=== PATIENT | male | born 1970 | race Caucasian/White ===

== ENCOUNTER 2018-09-30 04:57 | Observation (INO) | payer BC ==
--- NOTE | 2018-09-30 05:13 | EDPHY ---
H & P Stated Complaint: Swelling around left eye Time Seen by Provider: 09/30/18 05:13 HPI/ROS: HPI CHIEF COMPLAINT: Facial swelling, redness, pain. HISTORY OF PRESENT ILLNESS: Very pleasant 47-year-old male, visiting from out of town, from [facility] on Saturday he noticed some swelling, itching and redness to his face bilaterally above his eyebrows. This is progressively gotten worse. Now has left facial swelling, increasing pain. He also noticed some yellow crusting with yellow drainage. Denies any eye pain. Denies eye pain with movement. Denies fever. He went to an urgent care and was started on Keflex orally. However he was told that it could also possibly be an allergic reaction. Woke up this morning with increasing swelling left-sided face and decided come the emergency room. Patient denies any trauma. Past Medical History: Patient does report that he has a history of cellulitis. But never this bad on his face. Past Surgical History: Chest pacemaker. Social History: Denies drugs alcohol tobacco. Retired. From [employer]. Visiting family. Family History: Noncontributory ROS REVIEW OF SYSTEMS: 10 Systems were reviewed and negative with the exception of the elements mentioned in the history of present illness. Exam Constitutional vital signs stable, nontoxic appearing triage nursing summary reviewed, vital signs reviewed, awake/alert. Eyes normal conjunctivae and sclera, EOMI, PERRLA. HENT face exam: Facial swelling bilaterally however worse around the left orbit, soft, minimal tenderness, mild redness, mild warmth, yellow crusting at the medial corner of the left Person, and yellow crusting above the left eyebrow consistent with most likely impetigo, no room mucosal lesions, moist mucus membranes, no epistaxis, neck supple/ no meningismus, no raccoon eyes. Respiratory clear to auscultation bilaterally, normal breath sounds, no respiratory distress, no wheezing. Cardiovascular rate normal, regular rhythm, no murmur, no edema, distal pulses normal. Gastrointestinal soft, non-tender, no rebound, no guarding, normal bowel sounds, no distension, no pulsatile mass. Genitourinary no CVA tenderness. Musculoskeletal no midline vertebral tenderness, full range of motion, no calf swelling, no tenderness of extremities, no meningismus, good pulses, neurovascularly intact. Skin red blotches left lateral ribs, and right hip please see above for facial cellulitis. Neurologic awake, alert and oriented x 3, AAOx3, moves all 4 extremities equally, motor intact, sensory intact, CN II-XII intact, normal cerebellar, normal vision, normal speech. Psychiatric normal mood/affect. Heme/Lymph/Immune no lymphadenopathy. Differential Diagnosis: Includes but is not limited to facial cellulitis, strep infection, MRSA infection, bacteremia, sepsis, deep space abscess, periorbital cellulitis, orbital cellulitis Medical Decision Making: Plan for this patient IV establishment blood cultures , inflammatory markers, lactic acid, IV Ancef, CT maxillofacial with IV contrast , and admission. Re-evaluation: Spoke with the hospitalist service agree for admission Dr. Baxter. CT maxillofacial with contrast called to me by Dr. Anderson. Shows preseptal cellulitis. Left eye. No orbital cellulitis. No abscess Source: Patient - Personal History Current Tetanus/Diphtheria Vaccine: Yes Current Tetanus Diphtheria and Acellular Pertussis (TDAP): Yes - Medical/Surgical History Hx Asthma: No Hx Chronic Respiratory Disease: No Hx Diabetes: No Hx Cardiac Disease: No Hx Renal Disease: No Hx Cirrhosis: No Hx Alcoholism: No Hx HIV/AIDS: No Hx Splenectomy or Spleen Trauma: No Other PMH: pacemaker - Social History Smoking Status: Never smoked Constitutional: Initial Vital Signs Temperature (C) 36.5 C 09/30/18 05:03 Heart Rate 49 L 09/30/18 05:03 Respiratory Rate 16 09/30/18 05:03 Blood Pressure 135/87 H 09/30/18 05:03 O2 Sat (%) 98 09/30/18 05:03 O2 Delivery Mode Room Air Allergies/Adverse Reactions: No Known Allergies Allergy (Verified 09/30/18 08:09) Home Medications: Medication Instructions Recorded Cephalexin [Keflex (*)] 500 mg PO QID 09/30/18 diphenhydrAMINE [Benadryl 25 MG 25 mg PO DAILY PRN 09/30/18 (*)] Medical Decision Making - Data Points Laboratory Results: Laboratory Results 09/30/18 05:35 09/30/18 05:35 Medications Given: Diphenhydramine HCl (Benadryl) 25 mg PO Q6HRS IRINEO Stop: 03/30/19 00:00 Last Admin: 10/01/18 05:21 Dose: 25 mg Vancomycin HCl 1.25 gm/ Sodium (Chloride) 250 mls @ 166.667 mls/hr IV Q12H IRINEO Stop: 10/30/18 22:59 Last Admin: 09/30/18 23:06 Dose: 250 mls Discontinued Medications Cefazolin Sodium/Dextrose (Ancef) 100 mls @ 200 mls/hr IV EDNOW ONE PRN Reason: Protocol Stop: 09/30/18 05:51 Last Admin: 09/30/18 05:36 Dose: 100 mls Sodium Chloride (Ns) 1,000 mls @ 0 mls/hr IV EDNOW ONE; Wide Open PRN Reason: Protocol Stop: 09/30/18 05:23 Last Admin: 09/30/18 05:32 Dose: 1,000 mls Ampicillin Sodium/Sulbactam (Sodium 3 gm/ Sodium Chloride) 100 mls @ 200 mls/ hr IV EDNOW ONE PRN Reason: Protocol Stop: 09/30/18 06:45 Last Admin: 09/30/18 06:18 Dose: Not Given Cefazolin Sodium/Dextrose (Ancef) 100 mls @ 200 mls/hr IV Q8HRS IRINEO PRN Reason: Protocol Stop: 10/30/18 13:59 Last Admin: 09/30/18 23:25 Dose: Not Given Prednisone (Prednisone) 40 mg PO ONCE ONE Stop: 09/30/18 22:16 Last Admin: 09/30/18 23:05 Dose: 40 mg Departure - Departure Disposition: [facility] Clinical Impression: Facial cellulitis Condition: Fair
[2018-09-30] MEDS ORDERED: ceFAZolin 2 GM/DEXTROSE 100 ML IV ONE (05:22)
[2018-09-30] MEDS ORDERED: NS 1,000 ML IV ONE (05:22)
[2018-09-30] MEDS ORDERED: CEFAZOLIN 1 GM/DEXTROSE/50 ML BAG IV ONE (05:24)
[2018-09-30] MEDS ORDERED: IOPAMIDOL (ISOVUE-300) 100 ML BTL ONE (05:54)
[2018-09-30 05:58] LABS: PLATELET COUNT 119 10^3/uL (150-400)
[2018-09-30] MEDS ORDERED: ONDANSETRON DISINTEGRATING 4 MG TAB PO PRN (06:15)
[2018-09-30] MEDS ORDERED: ACETAMINOPHEN 325 MG TAB PO PRN (06:15)
[2018-09-30] MEDS ORDERED: ONDANSETRON 4 MG/2 ML VIAL IVP PRN (06:15)
[2018-09-30] MEDS ORDERED: AMPICILLIN/SULBACTAM 3 GM in NS 100 ML IV ONE (06:16)
--- NOTE | 2018-09-30 08:06 | PDGENHP ---
History and Physical - Chief Complaint Facial swelling - History of Present Illness 47 yo M w/ hx of bradycardia and PPM placement presents with facial swelling. He first noticed mild itching above his eyebrows a few days ago. Yesterday this developed into mild swelling. He went to an urgent care and was given Keflex, of which he took only one dose. He woke up this morning and had severe swelling of his L face so he came to the ED. He denies fevers, chills, or visual disturbance. CT scan in the ED reveals only pre-septal cellulitis. He is being admitted for IV antibiotics. History Information - Allergies/Home Medication List Allergies/Adverse Reactions: No Known Allergies Allergy (Verified 09/30/18 08:09) Home Medications: CEPHALEXIN 500 mg PO Q6 09/30/18 [Last Taken 09/30/18 500mg] diphenhydrAMINE [Benadryl 25 MG (*)] 25 mg PO DAILY PRN 09/30/18 [Last Taken ] I have personally reviewed and updated: family history, medical history - Past Medical History Additional medical history: Vagal induced bradycardia - Surgical History Reports: pacemaker/AICD - Family History Positive for: cancer - Social History Smoking Status: Never smoked Review of Systems Review of Systems: ROS: 10pt was reviewed & negative except for what was stated in HPI & below Physical Exam Physical Exam: Temp Pulse Resp BP Pulse Ox 36.6 C 50 L 14 127/90 H 94 09/30/18 07:37 09/30/18 07:37 09/30/18 07:37 09/30/18 07:37 09/30/18 07:37 Constitutional: no apparent distress, not in pain Eyes: PERRL, EOMI, other (Swelling involing most of L face, erythema) Ears, Nose, Mouth, Throat: moist mucous membranes, no oral mucosal ulcers Cardiovascular: regular rate and rhythym, no murmur, rub, or gallop Respiratory: no respiratory distress, clear to auscultation Gastrointestinal: normoactive bowel sounds, soft, non-tender abdomen Skin: warm, erythema Musculoskeletal: full muscle strength, no muscle tenderness Neurologic: AAOx3, CN II-XII Intact Psychiatric: interacting appropriately, not anxious Lab Data & Imaging Review 09/30/18 05:35 09/30/18 05:35 WBC 3.81 10^3/uL (3.80-9.50) 09/30/18 05:35 RBC 4.30 10^6/uL (4.40-6.38) L 09/30/18 05:35 Hgb 12.9 g/dL (13.7-17.5) L 09/30/18 05:35 Hct 37.8 % (40.0-51.0) L 09/30/18 05:35 MCV 87.9 fL (81.5-99.8) 09/30/18 05:35 MCH 30.0 pg (27.9-34.1) 09/30/18 05:35 MCHC 34.1 g/dL (32.4-36.7) 09/30/18 05:35 RDW 13.0 % (11.5-15.2) 09/30/18 05:35 Plt Count 119 10^3/uL (150-400) L 09/30/18 05:35 MPV 11.3 fL (8.7-11.7) 09/30/18 05:35 Neut % (Auto) 40.5 % (39.3-74.2) 09/30/18 05:35 Lymph % (Auto) 43.8 % (15.0-45.0) 09/30/18 05:35 Ray % (Auto) 7.3 % (4.5-13.0) 09/30/18 05:35 Eos % (Auto) 7.1 % (0.6-7.6) 09/30/18 05:35 Baso % (Auto) 1.0 % (0.3-1.7) 09/30/18 05:35 Nucleat RBC Rel Count 0.0 % (0.0-0.2) 09/30/18 05:35 Absolute Neuts (auto) 1.54 10^3/uL (1.70-6.50) L 09/30/18 05:35 Absolute Lymphs (auto) 1.67 10^3/uL (1.00-3.00) 09/30/18 05:35 Absolute Monos (auto) 0.28 10^3/uL (0.30-0.80) L 09/30/18 05:35 Absolute Eos (auto) 0.27 10^3/uL (0.03-0.40) 09/30/18 05:35 Absolute Basos (auto) 0.04 10^3/uL (0.02-0.10) 09/30/18 05:35 Absolute Nucleated RBC 0.00 10^3/uL (0-0.01) 09/30/18 05:35 Immature Gran % 0.3 % (0.0-1.1) 09/30/18 05:35 Immature Gran # 0.01 10^3/uL (0.00-0.10) 09/30/18 05:35 ESR < 1 MM/HR (0-15) 09/30/18 05:35 VBG Lactic Acid 1.0 mmol/L (0.7-2.1) 09/30/18 05:35 Sodium 140 mEq/L (135-145) 09/30/18 05:35 Potassium 4.0 mEq/L (3.3-5.0) 09/30/18 05:35 Chloride 104 mEq/L (97-110) 09/30/18 05:35 Carbon Dioxide 28 mEq/l (22-31) 09/30/18 05:35 Anion Gap 8 mEq/L (6-14) 09/30/18 05:35 BUN 17 mg/dL (7-23) 09/30/18 05:35 Creatinine 1.2 mg/dL (0.7-1.3) 09/30/18 05:35 Estimated GFR > 60 09/30/18 05:35 Glucose 98 mg/dL (70-100) 09/30/18 05:35 Calcium 9.2 mg/dL (8.5-10.4) 09/30/18 05:35 C-Reactive Protein < 5.0 mg/L (<10.0) 09/30/18 05:35 Procalcitonin < 0.02 ng/mL (0.02-0.10) L 09/30/18 05:35 Imaging Review: Face CT Prelim preseptal cellulitis left eye no abscess, sinusitis Assessment & Plan Assessment: 47 yo M presents with facial cellulitis. Plan: 1. Facial cellulitis - CT confirms preseptal cellulitis; no periorbital involvement. Unclear precipitating factor; patient has had 2 prior cellulitis episodes (L ear, R leg) over the course of a couple of years. - Cefazolin 2 g IV q8h - Low threshold to broaden if not improving - Blood cultures pending 2. Hx of Bradycardia - He describes history of vagally induced bradycardia; now s/p pacemaker. Diet - Regular Code - Full Ppx - SCDs Dispo - Admit under observation status
--- NOTE | 2018-09-30 14:14 | ASMTCMCOM ---
CM Note CM Note Notes: Patient plan of care reviewed in rounds. 47 year old male from [place] admitted with facial cellulitis. History of bradycardia and PPM. No current needs identified. CM available should needs arise. Plan: Likely to dc no needs when medically cleared for discharge. Date Signed: 09/30/2018 02:13 PM Electronically Signed By:Yajaira Martinez RN
[2018-09-30] MEDS: ceFAZolin 2 GM/DEXTROSE 100 ML IV SCH ×2 (14:54→23:25)
--- NOTE | 2018-09-30 16:42 | HOSPPROG ---
Hospitalist Progress Note Assessment/Plan: * Facial cellulitis -continue IV ancef * Bradycardia s/p PCM Subjective: Improving Objective: Vital Signs Temp Pulse Resp BP Pulse Ox 36.8 C 50 L 16 131/81 H 94 09/30/18 15:47 09/30/18 15:47 09/30/18 15:47 09/30/18 15:47 09/30/18 15:47 09/29/18 09/30/18 10/01/18 05:59 05:59 05:59 Intake Total 1000 Balance 1000 d/w Dr. Askew regarding status at shift transfer facial CT reviewed - no deep infection Laboratory Tests 09/30/18 05:35 WBC 3.81 Hct 37.8 L Plt Count 119 L - Physical Exam Constitutional: no apparent distress, appears nourished, not in pain Cardiovascular: regular rate and rhythym, no murmur, rub, or gallop Respiratory: no respiratory distress, no rales or rhonchi, clear to auscultation Gastrointestinal: normoactive bowel sounds, soft, non-tender abdomen, no palpable masses Skin: warm, erythema, rash, other (extensive swelling around both eyes L>R, starting to open left eye), No abrasion, No fluctuance Musculoskeletal: full muscle strength, no muscle tenderness, normal joint ROM Neurologic: AAOx3, sensation intact bilaterally Psychiatric: interacting appropriately, not anxious, not encephalopathic, thought process linear ICD10 Worksheet Patient Problems: Problems Problem Status Onset Facial cellulitis Acute
[2018-09-30] MEDS ORDERED: predniSONE 20 MG TAB PO ONE (22:15)
--- NOTE | 2018-09-30 22:43 | HOSPPROG ---
Hospitalist Progress Note Assessment/Plan: I was called to see this patient for worsening facial swelling and itching tonight. The patient was admitted over this morning with diagnosis of cellulitis on not responding to antibiotics. He 1st noticed itching and redness around the eyelids and then below the eyes a couple of days ago. He traveled here from [place] and was seen in an urgent care where he was given a prescription for Keflex. However his swelling increased significantly in he therefore presented to the ER here and was admitted for treatment. Was started on Ancef intravenously here and initially felt like he was getting better this morning. However through the afternoon and tonight he is noticing dramatically worsening facial swelling. Interestingly it is notable that the patient has not had any pain in the area of affected skin throughout this episode. It is mildly itchy but not enough to really bother him and he is not scratching. In addition he has had no fever or fever symptoms, his white blood cell count, sedimentation rate, CRP, and procalcitonin are all normal. He denies any intraoral or other mucosal pain itching or ulcerations. He does not notice any swelling of the tongue or throat structures, however notably tonight he is complaining of swelling of his penis. There is no pain at the genitals but slight itching of the skin of the penis. He has never had anything like this before. He denies chills sweats, headache, neurologic symptoms, joint aches or muscle aches, nausea or abdominal symptoms, and he has been able to eat okay today. He denies previous history of any medication allergies or allergic reactions to anything besides mild hay fever type symptoms. He denies travel outside the country. He does not think he has had any bee stings or other insect bites and [facility]. He does not recall any family members with a similar illness At this time on exam he has normal vital signs and no fever He has extensive facial swelling that is now bilateral instead of just left- sided at the time of admission. There is very mild redness, no fissuring blistering crusting or other changes in skin integrity. It is not warm or tender. He does not have any scratch cadena. The eyes themselves appeared normal and the oral pharyngeal exam is normal and his voice is normal. There is no stridor or breathing trouble. I did examine his genitals any does indeed have some subcutaneous edema of the penis but not the scrotum and there is no redness or other skin lesions, no adenopathy, no urethral discharge. At this time I am not certain of what the diagnosis is. Without pain, fever, or any blood test abnormalities in the realm of inflammatory indicators, it is hard to think of this as an infection particularly as it is not responding to antibiotic. However it would be hard to rule out a staph infection that is partially treated by his antibiotics and I would be worried about MRSA infection. I do not think this is an allergic reaction but that would be hard to rule out as well. And angioedema or urticaria syndrome is possible and is worth checking some complement studies which I have ordered. The fact that he has edema the skin on the penis could be related to the IV fluids he got in the ER this morning or could be related to this same illness that is affecting his face. This would make it less likely to be an infection. Plans: * Stop Ancef * Vancomycin is ordered * Prednisone 40 mg daily starting tonight * Benadryl schedule doses every 6 hr * Complement studies * Repeat CBC sed rate and CRP in the morning Objective: Vital Signs Temp Pulse Resp BP Pulse Ox 36.9 C 53 L 16 134/86 H 95 09/30/18 19:38 09/30/18 19:38 09/30/18 19:38 09/30/18 19:38 09/30/18 19:38 09/29/18 09/30/18 10/01/18 06:59 06:59 06:59 Intake Total 1000 Balance 1000 ICD10 Worksheet Patient Problems: Problems Problem Status Onset Facial cellulitis Acute
[2018-09-30] MEDS ORDERED: VANCOMYCIN 1.25 GM in NS 250 ML IV SCH (23:00)
[2018-09-30] MEDS: diphenhydrAMINE 25 MG CAP PO SCH (23:05)
[2018-10-01 04:48] LABS: PLATELET COUNT 128 10^3/uL (150-400)
[2018-10-01] MEDS: diphenhydrAMINE 25 MG CAP PO SCH ×3 (05:18→14:11)
[2018-10-01 08:43] VITALS: BP 128/80
[2018-10-01] MEDS ORDERED: predniSONE 20 MG TAB PO SCH (09:00)
[2018-10-01] MEDS ORDERED: VANCOMYCIN HCL/NORMAL SALINE 250 ML IV SCH (11:00)
--- NOTE | 2018-10-01 11:06 | GCON ---
INFECTIOUS DISEASE CONSULTATION DATE OF CONSULTATION: 10/01/2018 REFERRING PHYSICIAN: Chitra Castellon MD REASON FOR CONSULTATION: Possible facial cellulitis. HISTORY OF PRESENT ILLNESS: The patient is a 47-year-old male with a past medical history of bradyca rdia requiring pacemaker placement who I am asked to see in consultation for concern of facial cellul itis. Patient typically lives in [place] and is currently visiting [place]. He describes developi ng pruritus above the left eye approximately 5 days ago. This subsequently was associated with swell ing to the point that his eye was swollen shut. He did not have associated fevers, chills, or night sweats. The area was pruritic, but not painful. He was seen in urgent care based on these findings and started on cephalexin with concern for facial cellulitis. Subsequently, he experienced progressi ve swelling and also involvement of the right side of the face. He also notes that he has an area on his left flank and axilla, which has similar findings and occurred after he scratched the area. He also notes a similar area in the right inguinal region. He does describe having some weeping from th e left side of his face, which he has pictures of and show clear serous drainage. This has subsequen tly stopped. At the time of admission, the patient was started on cephalexin empirically for facial cellulitis. C T scan of the face was performed showing thickening and enhancement of the subcutaneous tissues over the left cheek and orbit suggestive of preseptal cellulitis. Yesterday, the patient was felt to be i mproving, but later in the evening developed progressive facial swelling and also penile swelling. T his was associated with pruritus as well. Laboratory evaluation has revealed a normal white blood ce ll count with no increase in inflammatory markers and normal procalcitonin. He has not experienced t ongue swelling or difficulty breathing. 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 He did apply Eucerin cream over his face prior to onset of symptoms with initial onset of pruritus. He has not noted any adenopathy in t he submandibular, cervical, or inguinal regions. Based on the progressive swelling yesterday, his an tibiotics were changed to vancomycin and prednisone was begun at 40 mg daily. This a.m., he feels li ke his symptoms have improved significantly. Given the above findings, I am now asked to assist in h is ongoing management. PAST MEDICAL HISTORY: Cellulitis of the left ear, cellulitis of right lower extremity after exposure to poison oak. PAST SURGICAL HISTORY: Jaw surgery in the past. CURRENT MEDICATIONS: Vancomycin 1 g IV q.12 hours, prednisone 40 mg p.o. daily, Benadryl 25 mg orall y q.6 hours. ALLERGIES: No known drug allergies. SOCIAL HISTORY: No tobacco use. Social alcohol intake. No drugs. 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 [place] in [place] as outlined above. FAMILY HISTORY: Eczema and asthma in his children. REVIEW OF SYSTEMS: Outside that noted in the HPI, the remainder of 10-system review is unremarkable. PHYSICAL EXAMINATION: VITAL SIGNS: Temperature 36.5, heart rate 55, respiratory rate 16, blood pres sure 128/80, oxygen saturation 92% on room air. GENERAL: Patient is well-nourished, well-developed in no acute distress. He appears nontoxic. HEENT: There is faint erythema over the face involving both cheeks, the nose, and the brow region with mild associated edema and warmth. The area is nonten rodger to palpation. There is mild scaliness to the area along the brow. There is no active drainage. There is no tenderness along the nose. There are no nasal pustules or drainage. The oropharynx maryse ws moist mucous membranes with no tongue edema. There is no scleral icterus, conjunctival injection, or conjunctival petechiae. The extraocular muscles are intact. There is no proptosis. NECK: Supp le without palpable lymphadenopathy or thyromegaly. CHEST: Clear to auscultation bilaterally withou t adventitious sounds. The respiratory effort is normal. CARDIOVASCULAR: Bradycardic without murmur s, gallops, or rubs. Pacemaker is present in the left upper chest with no erythema or tenderness. A BDOMEN: Soft, nontender, nondistended. No palpable organomegaly. Bowel sounds are present. : T here is edema of the penile shaft. There is faint erythema over the scrotal surface, which is nonten rodger. SKIN: There are erythematous wheals present in a scratch distribution over the left flank with pinpoint erythematous rash adjacent and in the axilla without pustulosis. There is a patch of eryth ematous slightly raised lesions in the right inguinal region without tenderness. No areas of purulen ce or drainage. There are no stigmata of endocarditis. The skin is warm and dry to touch with incre ased warmth over face as outlined above. Short-lived dermatographism present over the back. LYMPHAT ICS: No cervical, supraclavicular inguinal nodes palpable. NEUROLOGIC: The patient is alert and in teracts appropriately with examiner. Cranial nerves 2-12 are grossly intact. Sensation is grossly i ntact. Muscle tone and bulk are normal. LABORATORY/IMAGING: White blood cell count 6.5, hematocrit 40.0, platelets 128, neutrophils 85%. ES R less than 1. Creatinine 1.2, CRP less than 5, procalcitonin less than 0.02, venous lactate is 1.0. Complements and C1 esterase inhibitor pending. Blood cultures x2 show no growth. Facial CT is outlined above. IMPRESSION: 1. Facial erythema, edema, and warmth with rash also present in left axillary and inguinal region: Given the clinical findings and multifocal nature of the rash, suspect this is most likely noninfecti ous in etiology. This is also supported by lack of constitutional symptoms or leukocytosis. Conside rations, include contact dermatitis or eczematous reaction, although no discrete stimulus recollected by patient. Facial cellulitis is in the differential diagnosis, although based on clinical findings , as well as factors described above, suspect this is less likely. Additionally, cellulitis would ty pically be tender to palpation. Would not expect facial cellulitis to have subsequent spread to axil la or inguinal region, which would be significantly atypical. 2. Mild thrombocytopenia: Unclear etiology. The patient was advised to follow up with his primary care physician at home where other CBCs may be available for review. RECOMMENDATIONS: 1. Agree with prednisone 40 mg orally daily. 2. Discontinue vancomycin and observe off antibiotics. 3. Follow up with your primary care physician regarding mild thrombocytopenia. 4. Advised patient to call me if he develops progressive symptoms while off antibiotic therapy. 5. I think patient can be discharged with ongoing oral prednisone use. Thank you for this consultation. /[id number]/[id number]
--- NOTE | 2018-10-01 18:12 | GDS ---
DISCHARGE DIAGNOSES: 1. Contact dermatitis. 2. Facial cellulitis ruled out. 3. Bradycardia status post pacemaker. HISTORY: This is a 47-year-old male who presented with what appeared to be a facial cellulitis. He had extensive redness and swelling periorbitally and it was difficult for him to open his eyes. He w as started on IV Ancef. He worsened despite antibiotics. He was switched to IV vancomycin and Infec tious Disease was consulted. At no point did he have any fever or white blood cell count elevation. His procalcitonin was negativ e. He was started on steroids as a suspicion was more for contact dermatitis than cellulitis given h is atypical presentation. He rapidly improved on the prednisone. He does do trail running and touch es various vegetation and then wipes his eyes when he is sweating. It is suspected that he is having a reaction to something in the environment. We discontinued all antibiotics and will be discharging him on prednisone 40 mg p.o. daily. He will be traveling back to [place] where he lives soon. He has Dr. Rivera's contact information if anything further were to worsen during the remainder of his vis it to [place]. DISCHARGE MEDICATIONS: Please see computerized record for full detailed list. New medications: Predn isone 40 mg p.o. daily for 5 days. ADDITIONAL DISCHARGE INSTRUCTIONS: 1. Okay to return to [place] provided condition continues to improve. 2. Follow up with primary care regarding incidentally noted low platelets. Patient seen and examined by me on day of discharge. /[id number]/MODL
== END 2018-10-01 12:30 | disposition home or self-care (01) ==
LOC: F1N 06:55
PROVIDERS: ADMIT Student in an Organized Health Care Education/Training Program; ATTEND Student in an Organized Health Care Education/Training Program
DX: L25.9 Unspecified contact dermatitis, unspecified cause (principal); D69.6 Thrombocytopenia, unspecified; N48.89 Other specified disorders of penis; R00.1 Bradycardia, unspecified; Z95.0 Presence of cardiac pacemaker; Z87.2 Personal history of diseases of the skin and subcutaneous tissue
CPT/HCPCS: 70487; 96365; 96375; 96376; 99285; G0378; J0295; J0690; J3370; J7512; Q9967